=== PATIENT | female | born 1975 | race Two or more races ===

== ENCOUNTER 2017-07-21 09:34 | Emergency (ER) | payer MEDICAID ==
[~2017-07-21] VITALS: Ht 154.9 cm; Wt 44.5 kg
[~2017-07-21 09:34] MED LIST: AFRIN NASAL SPR30 ML NASAL; ALBUTEROL SULF8.5 GM INH; IBUPROFEN600 MG ORAL; NORCO 10/3251 EA ORAL; ROBITUSSIN AC5 ML ORAL
[2017-07-21] MEDS ORDERED: NKM (10:02)
[2017-07-21] MEDS ORDERED: Metoclopramide 10mg/2ml Inj IVP ONE (10:15)
[2017-07-21] MEDS ORDERED: DiphenhydrAMINE 50mg/ml Inj IVP ONE (10:15)
[2017-07-21 10:29] LABS: APPEARANCE,URINE CLEAR; KETONES,URINE NEGATIVE (NEGATIVE); LEUKOCYTE ESTERASE ,URINE NEGATIVE (NEGATIVE); NITRITE,URINE NEGATIVE (NEGATIVE); PH,URINE 6.5 (4.5-8.0); PROTEIN,URINE NEGATIVE (NEGATIVE); UROBILINOGEN,URINE NORMAL MG/DL (0.0-1.0)
[2017-07-21 10:35] LABS: BASOPHILS % (AUTO) 0.6 % (0.0-2.0); EOSINOPHILS % (AUTO) 1.2 % (0.0-3.0); LYMPHOCYTES % (AUTO) 20.3 % (20.0-45.0); MEAN CORPUSCULAR HEMOGLOBIN 32.7 PG (27.0-31.0); MEAN CORPUSCULAR HGB CONC 33.3 G/DL (32.0-36.0); MEAN CORPUSCULAR VOLUME 98 FL (80-99); MEAN PLATELET VOLUME 6.4 FL (6.5-10.1); MONOCYTES % (AUTO) 5.3 % (1.0-10.0); NEUTROPHILS % (AUTO) 72.7 % (45.0-75.0); PLATELET COUNT 182 K/UL (150-450); RED BLOOD COUNT 4.36 M/UL (4.20-5.40); RED CELL DISTRIBUTION WIDTH 11.3 % (11.6-14.8); WHITE BLOOD COUNT 8.8 K/UL (4.8-10.8)
[2017-07-21 10:37] LABS: SQUAMOUS EPITHELIAL CELL,UR OCCASIONAL /LPF (NONE/OCC); WBC,URINE 0-2 /HPF (0 - 2)
[2017-07-21 10:47] LABS: ALANINE AMINOTRANSFERASE 10 U/L (3-33); ALBUMIN/GLOBULIN RATIO 1.2 (1.0-2.7); ANION GAP 12 (5-15); ASPARTATE AMINO TRANSFERASE 16 U/L (5-40); CALCIUM 9.5 mg/dL (8.6-10.2); CARBON DIOXIDE 26 mEQ/L (20-30); CHLORIDE 103 mEQ/L (98-107); CREATININE 0.8 mg/dL (0.5-0.9); GLOMERULAR FILTRATION RATE > 60 mL/min (>60); HEMOLYSIS 5; LIPASE 34 U/L (< 60); POTASSIUM 3.5 mEQ/L (3.4-4.9); SODIUM 141 mEQ/L (135-145); TOTAL PROTEIN 7.6 g/dL (6.6-8.7)
[2017-07-21 12:30] VITALS: BP 94/50
--- NOTE | 2017-07-21 12:59 | Emergency Room Report ---
History of Present Illness General Chief Complaint: Complications Source: Patient Present Illness HPI Patient saw Ob on Monday and had U/S with heart beat. Given progesterone suppository. Bleeding got worse after with passing watery blood and then having cramps. Pain 7/10, crampy, suprapubic, some radiation to back. Not severe blood flow. Not pass tissue. Nausea, no vomit. No URI sy. Has had 3 miscarriages. One child. Not know blood type. Allergies: Coded Allergies: PENICILLINS (Unverified Allergy, Unknown, 07/29/14) Patient History Past Medical History: see triage record Social History: Denies: smoking Social History Narrative with family Last Menstrual Period: 05/08/17 Now: Yes - 6weeks : 5 Para: 1 Reviewed Nursing Documentation: PMH: Agreed, PSxH: Agreed Nursing Documentation-PMH Past Medical History: No Stated History Physical Exam Vital Signs Date Time Temp Pulse Resp B/P (MAP) Pulse Ox O2 Delivery O2 Flow Rate FiO2 07/21/17 09:56 98.1 76 16 109/73 97 Room Air Sp02 EP Interpretation: reviewed, normal General Appearance: well appearing, no apparent distress, GCS 15 Head: normocephalic Eyes: bilateral eye normal inspection, bilateral eye PERRL ENT: moist mucus membranes Neck: supple Respiratory: lungs clear, normal breath sounds Cardiovascular #1: regular rate, rhythm Cardiovascular #2: 2+ radial (R) Gastrointestinal: normal inspection, normal bowel sounds, non tender, no mass, non-distended Genitourinary: deferred - for ultrasound. No sig bleeding. Musculoskeletal: back normal, gait/station normal, normal range of motion Neurologic: alert, oriented x3, grossly normal Psychiatric: mood/affect normal Skin: normal inspection, warm/dry, other - no pallor Medical Decision Making Diagnostic Impression: Primary Impression: Inevitable miscarriage Additional Impression: Vaginal bleeding ER Course Patient with cramping, 4-6 weeks IUP with bleeding. Ddx: threatened miscarriage , miscarriage, inevitable amongst others. Evaluation with labs, with quant, type and rh. Ultrasound. Will treat with tylenol and IV hydration. H/H good. Quant +. Rh +. U/S with non-viable IUP/POC. Discussed findings with patient. No pain at this time. No sig bleeding. Patient stable for outpatient observation and treatment. Laboratory Tests Test 07/21/17 09:55 07/21/17 10:16 Urine Color Pale yellow Urine Appearance Clear Urine pH 6.5 (4.5-8.0) Urine Specific [place] 1.015 (1.005-1.035) Urine Protein Negative (NEGATIVE) Urine Glucose (UA) Negative (NEGATIVE) Urine Ketones Negative (NEGATIVE) Urine Occult Blood 5+ (NEGATIVE) H Urine Nitrite Negative (NEGATIVE) Urine Bilirubin Negative (NEGATIVE) Urine Urobilinogen Normal MG/DL (0.0-1.0) Urine Leukocyte Esterase Negative (NEGATIVE) Urine RBC 2-4 /HPF (0 - 2) H Urine WBC 0-2 /HPF (0 - 2) Urine Squamous Epithelial Cells Occasional /LPF Urine Bacteria None /HPF (NONE) White Blood Count 8.8 K/UL (4.8-10.8) Red Blood Count 4.36 M/UL (4.20-5.40) Hemoglobin 14.3 G/DL (12.0-16.0) Hematocrit 42.9 % (37.0-47.0) Mean Corpuscular Volume 98 FL (80-99) Mean Corpuscular Hemoglobin 32.7 PG (27.0-31.0) H Mean Corpuscular Hemoglobin Concent 33.3 G/DL (32.0-36.0) Red Cell Distribution Width 11.3 % (11.6-14.8) L Platelet Count 182 K/UL (150-450) Mean Platelet Volume 6.4 FL (6.5-10.1) L Neutrophils (%) (Auto) 72.7 % (45.0-75.0) Lymphocytes (%) (Auto) 20.3 % (20.0-45.0) Monocytes (%) (Auto) 5.3 % (1.0-10.0) Eosinophils (%) (Auto) 1.2 % (0.0-3.0) Basophils (%) (Auto) 0.6 % (0.0-2.0) Sodium Level 141 mEQ/L (135-145) Potassium Level 3.5 mEQ/L (3.4-4.9) Chloride Level 103 mEQ/L (98-107) Carbon Dioxide Level 26 mEQ/L (20-30) Anion Gap 12 (5-15) Blood Urea Nitrogen 9 mg/dL (7-23) Creatinine 0.8 mg/dL (0.5-0.9) Estimate Glomerular Filtration Rate > 60 mL/min (>60) Glucose Level 111 mg/dL (74-106) H Calcium Level 9.5 mg/dL (8.6-10.2) Total Bilirubin 0.4 mg/dL (0.0-1.2) Aspartate Amino Transferase (AST) 16 U/L (5-40) Alanine Aminotransferase (ALT) 10 U/L (3-33) Alkaline Phosphatase 49 U/L (35-104) Total Protein 7.6 g/dL (6.6-8.7) Albumin 4.2 g/dL (3.5-5.2) Globulin 3.4 g/dL Albumin/Globulin Ratio 1.2 (1.0-2.7) Lipase 34 U/L (< 60) Human Chorionic Gonadotropin, Quant 4540 mIU/mL Last Vital Signs Date Time Temp Pulse Resp B/P (MAP) Pulse Ox O2 Delivery O2 Flow Rate FiO2 07/21/17 14:05 67 15 92/61 99 Room Air 07/21/17 13:58 98.0 Status: improved Disposition: HOME, SELF-CARE Condition: Improved Scripts Ondansetron Odt* (ZOFRAN ODT*) 4 Mg Tab.rapdis 4 MG ORAL Q8H Y for Nausea & Vomiting, #4 TAB 1 Refill Prov: Abundio Childers M.D. 07/21/17 Ibuprofen* (MOTRIN*) 600 Mg Tablet 600 MG ORAL Q6H Y for For Pain, #20 TAB Prov: Abundio Childers M.D. 07/21/17 Tramadol Hcl* (ULTRAM*) 50 Mg Tablet 50 MG ORAL Q6H Y for For Pain, #10 TAB 0 Refills Prov: Abundio Childers M.D. 07/21/17 Referrals: [facility] ([facility]P) Abundio Childers M.D. Jul 21, 2017 12:59
[2017-07-21 13:00] VITALS: BP 86/51
[2017-07-21] MEDS ORDERED: TRAMADOL HCL50 MG ORAL (13:02)
[2017-07-21] MEDS ORDERED: ZOFRAN ODT4 MG ORAL (13:02)
[2017-07-21] MEDS ORDERED: IBUPROFEN600 MG ORAL (13:02)
[2017-07-21 13:05] VITALS: BP 84/51
[2017-07-21 13:20] VITALS: BP 87/49
--- NOTE | 2017-07-21 13:54 | Diagnostic Imaging Report ---
Indication:6 weeks . Pelvic pain and vaginal bleeding. Patient states 07/18/17 there was documentation of single living intrauterine . Technique: Grayscale and duplex Doppler imaging of the pelvis performed utilizing a transabdominal scan and endovaginal scan. Comparison: None available Findings: No intrauterine is seen at this time. There is heterogeneous material with blood in the lower uterine segment endometrial canal. Retained products of conception may be present. The solid portion of the filling defect measures about 3.3 x 1.9 cm. There is trace free fluid. Both ovaries are seen and appear normal. Few follicles are present. Uterus measures 11 x 8 x 6 cm. Right ovary 2.5 x 4 x 1.3 cm. Left ovary 2.6 x 3.4 x 1.9 cm. Impression: No intrauterine demonstrated. Blood and/or retained products of conception suspected within the endometrial canal at this time.
[2017-07-21 13:58] VITALS: BP 100/70
[2017-07-21 14:05] VITALS: BP 92/61
== END 2017-07-21 14:22 | disposition home or self-care (01) ==
LOC: EMR 10:11
DX: O03.9 Complete or unspecified spontaneous abortion without complication (principal)
CPT/HCPCS: 36415; 76801; 76830; 80053; 81003; 83690; 84702; 85025; 86850; 86900; 86901; 96361; 96374; 96375; 99284; J1200; J2765